=== PATIENT | male | born 1960 | race Caucasian/White ===

== ENCOUNTER 2019-02-17 20:48 | Inpatient (IN) | payer OTHER ==
[~2019-02-17] VITALS: Ht 167.6 cm; Wt 74.4 kg
[2019-02-17 20:58] VITALS: Ht 167.6 cm; Wt 74.4 kg
[2019-02-17 21:49] LABS: BASOPHIL % 0.6 % (0-2); PLATELET COUNT 126 x10^3mcL (130-400); RED CELL DISTRIBUTION WIDTH 13.8 % (11.5-14.5)
[2019-02-17 21:58] LABS: ALBUMIN 3.5 g/dL (3.4-5.0); BILIRUBIN TOTAL 0.4 mg/dL (0.20-1.00); CALCIUM 9.9 mg/dL (8.5-10.1); CARBON DIOXIDE 28.8 mmol/L (21-32); CREATININE SERUM 1.9 mg/dL (0.7-1.3); TOTAL PROTEIN, SERUM 6.9 g/dL (6.4-8.2)
[2019-02-17 22:01] LABS: POTASSIUM SERUM 7.3 mmol/L (3.5-5.1)
[2019-02-17] MEDS ORDERED: SENSIPAR30 M1 PO ×2 (23:28→23:32)
[2019-02-17] MEDS ORDERED: CARVEDILOL6.25 M1 PO (23:28)
[2019-02-17] MEDS ORDERED: ZESTRIL5 MG PO (23:29)
[2019-02-17] MEDS ORDERED: K-PHOS NEUTRAL1 TAB PO (23:29)
[2019-02-17] MEDS ORDERED: RANITIDINE HCL150 M1 PO (23:30)
[2019-02-17] MEDS ORDERED: ISOSORBIDE MONO60 MG PO (23:30)
[2019-02-17] MEDS ORDERED: PROGRAF1 MG PO (23:30)
[2019-02-17] MEDS ORDERED: MAVYRET 100-401 EACH PO (23:31)
[2019-02-17] MEDS ORDERED: BASAGLAR K100 UNIT/1 SQ (23:31)
[2019-02-17] MEDS ORDERED: DIFLUCAN200 MG PO (23:32)
[2019-02-17] MEDS ORDERED: AFREZZA1 EAC1 SQ (23:32)
[2019-02-17] MEDS ORDERED: PREDNISONE2.5 MG PO (23:33)
[2019-02-17] MEDS ORDERED: CELLCEPT500 MG PO (23:34)
[2019-02-17] MEDS ORDERED: MAGNESIUM OXID400 MG PO (23:34)
[2019-02-17] MEDS ORDERED: VELTASSA8.4 GM PO (23:34)
[2019-02-17] MEDS ORDERED: GABAPENTIN100 M2 PO (23:35)
[2019-02-17] MEDS ORDERED: SULFAMETHOXAZOL1 TA3 PO (23:36)
[2019-02-17] MEDS ORDERED: TIMOPTIC OCUMET10 ML OP (23:36)
[2019-02-17] MEDS ORDERED: GOOD SENSE ASPI81 M3 PO (23:37)
[2019-02-17] MEDS ORDERED: DORZOLAMIDE HYD10 ML OD (23:37)
[2019-02-17] MEDS ORDERED: ALPHAGAN P5 M1 OP (23:37)
[2019-02-17] MEDS ORDERED: LATANOPROST2.5 ML OP (23:38)
[2019-02-17] MEDS ORDERED: FLO4 PO (23:38)
[2019-02-17] MEDS ORDERED: MIRALAX17 GM/Dose PO (23:38)
[2019-02-18 01:01] VITALS: BP 179/83
[2019-02-18 05:14] VITALS: BP 136/66
[2019-02-18 06:10] LABS: BASOPHIL % 0.5 % (0-2); RED CELL DISTRIBUTION WIDTH 13.6 % (11.5-14.5)
[2019-02-18 06:15] LABS: CALCIUM 10.6 mg/dL (8.5-10.1); CARBON DIOXIDE 28.4 mmol/L (21-32); CREATININE SERUM 1.6 mg/dL (0.7-1.3)
[2019-02-18 06:24] LABS: PLATELET COUNT 113 x10^3mcL (130-400)
[2019-02-18 06:55] LABS: POTASSIUM SERUM 6.6 mmol/L (3.5-5.1)
[2019-02-18 09:00] VITALS: BP 101/74
[2019-02-18 12:25] VITALS: BP 149/72
[2019-02-18 15:57] LABS: CALCIUM 10.2 mg/dL (8.5-10.1); CARBON DIOXIDE 25.4 mmol/L (21-32); CREATININE SERUM 1.9 mg/dL (0.7-1.3)
[2019-02-18 16:14] LABS: POTASSIUM SERUM 6.6 mmol/L (3.5-5.1)
[2019-02-18 17:25] VITALS: BP 131/71
[2019-02-18 20:37] VITALS: BP 160/73
[2019-02-19 04:50] VITALS: BP 141/76
[2019-02-19 05:46] LABS: BASOPHIL % 0.5 % (0-2); RED CELL DISTRIBUTION WIDTH 13.5 % (11.5-14.5)
[2019-02-19 06:06] LABS: PLATELET COUNT 128 x10^3mcL (130-400)
[2019-02-19 06:14] LABS: ALBUMIN 3.5 g/dL (3.4-5.0); BILIRUBIN TOTAL 0.6 mg/dL (0.20-1.00); CALCIUM 10.9 mg/dL (8.5-10.1); CARBON DIOXIDE 26.6 mmol/L (21-32); CREATININE SERUM 1.9 mg/dL (0.7-1.3); PHOSPHOROUS 2.8 mg/dL (2.5-4.9)
[2019-02-19 06:15] LABS: POTASSIUM SERUM 5.6 mmol/L (3.5-5.1)
[2019-02-19 09:05] VITALS: BP 130/71
[2019-02-19 13:09] VITALS: BP 129/73
[2019-02-19 17:00] VITALS: BP 138/67
[2019-02-19 20:38] VITALS: BP 125/64
[2019-02-20 05:10] VITALS: BP 140/70
[2019-02-20 06:20] LABS: BASOPHIL % 0.5 % (0-2); RED CELL DISTRIBUTION WIDTH 13.5 % (11.5-14.5)
[2019-02-20 06:23] LABS: CALCIUM 10.5 mg/dL (8.5-10.1); CARBON DIOXIDE 26.4 mmol/L (21-32); CREATININE SERUM 1.6 mg/dL (0.7-1.3)
[2019-02-20 06:30] LABS: POTASSIUM SERUM 5.7 mmol/L (3.5-5.1)
[2019-02-20 06:50] LABS: PLATELET COUNT 122 x10^3mcL (130-400)
[2019-02-20 09:34] VITALS: BP 127/66
[2019-02-20 12:56] VITALS: BP 168/76
[2019-02-20 16:30] VITALS: BP 150/62
[2019-02-20 20:46] VITALS: BP 166/85
[2019-02-21 05:57] VITALS: BP 142/76
[2019-02-21 06:44] LABS: BASOPHIL % 0.5 % (0-2); PLATELET COUNT 133 x10^3mcL (130-400); RED CELL DISTRIBUTION WIDTH 13.9 % (11.5-14.5)
[2019-02-21 06:48] LABS: CALCIUM 10.5 mg/dL (8.5-10.1); CARBON DIOXIDE 26.4 mmol/L (21-32); CREATININE SERUM 1.5 mg/dL (0.7-1.3)
[2019-02-21 07:08] LABS: POTASSIUM SERUM 5.7 mmol/L (3.5-5.1)
[2019-02-21 09:08] VITALS: BP 132/70
[2019-02-21 12:54] VITALS: BP 135/65
[2019-02-21 16:07] VITALS: BP 136/68
[2019-02-21 21:08] VITALS: BP 152/73
[2019-02-22 05:59] VITALS: BP 163/76
[2019-02-22 06:29] LABS: BASOPHIL % 0.6 % (0-2); PLATELET COUNT 137 x10^3mcL (130-400); RED CELL DISTRIBUTION WIDTH 13.3 % (11.5-14.5)
[2019-02-22 06:51] LABS: ALBUMIN 3.6 g/dL (3.4-5.0); BILIRUBIN TOTAL 0.55 mg/dL (0.20-1.00); CALCIUM 10.8 mg/dL (8.5-10.1); CARBON DIOXIDE 23.2 mmol/L (21-32); CREATININE SERUM 1.5 mg/dL (0.7-1.3); PHOSPHOROUS 2.6 mg/dL (2.5-4.9); TOTAL PROTEIN, SERUM 7.1 g/dL (6.4-8.2)
[2019-02-22 06:58] LABS: POTASSIUM SERUM 6.1 mmol/L (3.5-5.1)
[2019-02-22 08:24] VITALS: BP 142/56
[2019-02-22 12:52] VITALS: BP 150/69
[2019-02-22 17:26] VITALS: BP 135/67
[2019-02-22 21:02] VITALS: BP 169/73
[2019-02-23 05:16] VITALS: BP 142/75
[2019-02-23 06:10] LABS: BASOPHIL % 0.5 % (0-2); PLATELET COUNT 140 x10^3mcL (130-400)
[2019-02-23 06:18] LABS: CALCIUM 10.1 mg/dL (8.5-10.1); CARBON DIOXIDE 27.2 mmol/L (21-32); CREATININE SERUM 1.3 mg/dL (0.7-1.3); POTASSIUM SERUM 5.3 mmol/L (3.5-5.1)
[2019-02-23 09:17] VITALS: BP 126/70
[2019-02-23 14:41] VITALS: BP 159/81
[2019-02-23 17:09] VITALS: BP 129/69
[2019-02-23 17:38] VITALS: BP 129/69
== END 2019-02-23 22:48 | disposition other institution (70) | DRG 640 ==
LOC: ED 20:48 → DU 23:00
PROVIDERS: Emergency Medicine; Internal Medicine; ADMIT Internal Medicine
DX: E87.5 Hyperkalemia (principal); N18.6 End stage renal disease; I12.0 Hypertensive chronic kidney disease with stage 5 chronic kidney disease or end stage renal disease; Z94.0 Kidney transplant status; N17.9 Acute kidney failure, unspecified; E11.22 Type 2 diabetes mellitus with diabetic chronic kidney disease; E11.65 Type 2 diabetes mellitus with hyperglycemia; B18.2 Chronic viral hepatitis C; E87.1 Hypo-osmolality and hyponatremia; E83.52 Hypercalcemia; E86.0 Dehydration; E05.90 Thyrotoxicosis, unspecified without thyrotoxic crisis or storm; F32.9 Major depressive disorder, single episode, unspecified; E11.40 Type 2 diabetes mellitus with diabetic neuropathy, unspecified; E03.9 Hypothyroidism, unspecified; Z99.2 Dependence on renal dialysis; Z79.82 Long term (current) use of aspirin; Z79.84 Long term (current) use of oral hypoglycemic drugs; Z88.6 Allergy status to analgesic agent; Z79.899 Other long term (current) drug therapy
CPT/HCPCS: 82962; G0378; J0610; J1815; J1940; J3490; J7030; J7507; J7512; J7517; J7613; Q0092